=== PATIENT | male | born 1995 | race Hispanic/Latino ===

== ENCOUNTER 2017-09-08 19:46 | Emergency (ER) | payer OTHER ==
[~2017-09-08] VITALS: Ht 188 cm; Wt 87.1 kg
[2017-09-08] MEDS ORDERED: ACYCLOVIR200 MG PO (21:02)
[2017-09-08 21:16] VITALS: BP 135/85
== END 2017-09-08 21:15 | disposition home or self-care (01) ==
LOC: FSED 19:46
DX: A60.01 Herpesviral infection of penis (principal)
CPT/HCPCS: 81003; 87491; 87591; 99282